=== PATIENT | female | born 1950 | race Caucasian/White ===

== ENCOUNTER 2016-12-16 20:45 | Emergency (ER) | payer MEDICARE, OTHER ==
[~2016-12-16] VITALS: Ht 158.8 cm; Wt 60.0 kg
[~2016-12-16 20:45] MED LIST: ALBUTEROL SULFATE; BLACK COHOSH; CALCIUM; CARTIA XT; FLUT1DIS8; MAGNESIUM; MELATONIN; MOMETASONE; NEX40C; PROGESTERONE; SELENIUM; VITAMIN B12; VITAMIN B6; VITAMIN D
[2016-12-16 20:47] VITALS: BP 171/99; PULSE 78; RESP 16; O2SAT 96
--- NOTE | 2016-12-16 20:59 | ED.REPORT ---
HPI-Allergic Reaction Date of Service Dec 16, 2016 ED Provider: Shane Long MD Pt is a 66 y/o female with a history of asthma, hypertension, GA, CHF, and pacemaker insertion who presents to ED c/o bright red and itching allergic reaction onset today. Pt was [place] for similar symptoms 2 [place] [facility] [place] given one dose of prednisone and Benadryl which mostly cleared up her symptoms, until they returned today. Two days ago, she tried new mushrooms, toothpaste, and eucalyptus essential oil, but denies having any of those today. Additional symptoms include tongue tingling. She denies lip swelling, tongue swelling, SOB, fever, or any other symptoms. Pt denies any new medications or insect bites. Nursing Notes Stated Complaint: POSS ALLERGIC REACTION TO MEDS Chief Complaint: Allergic Reaction Nursing Notes Reviewed: Yes ([employer], meds not reconciled) Allergies: Coded Allergies: levofloxacin (Verified Allergy, Severe, muscle pain, 12/16/16) Cephalosporins (Unverified Allergy, Unknown, HIVES, 07/21/10) Penicillins (Verified Allergy, Unknown, Hives, 02/08/09) Sulfa (Sulfonamide Antibiotics) (Unverified Allergy, Unknown, HIVES, ) cefuroxime axetil (Verified Allergy, Unknown, 10/31/13) doxycycline (Verified Allergy, Unknown, blind, 12/16/16) Scheduled Prednisone (PredniSONE) 20 Mg Tablet 60 MG PO DAILY Scheduled PRN Epinephrine (Epipen 2-Geovany) 0.3 Mg/0.3 Ml Auto.injct 0.3 MG IJ DIRECTED PRN PRN For Anaphyllaxis Miscellaneous Medications ([Albuterol Sulfate ]) ([Black Cohosh]) ([Calcium]) ([Magnesium]) ([Nasonex 0.05%]) ([Cartia Xt]) ([Melatonin ]) ([Progesterone]) ([Selenium Tr]) ([Vitamin B12]) ([Vitamin B6 ]) ([Vitamin D]) Esomeprazole-Expunged Drug, Do Not Renew! (Esomeprazole-Expunged Drug, Do Not Renew!) 40 Mg Capsule. Flutic/Salmet-Expunged Drug, Do Not Renew! (Advair 500/50-Expunged Drug, Do Not Renew!) 1 Disk W/Dev Disk.w.dev General Time Seen by MD: 20:58 Chief Complaint Allergic reaction Hx Obtained From: Patient, Spouse Arrived By: Walk-in Quality: Itching, Painful Severity: Current: Severe Severity: Maximum: Severe Recent Healthcare: No recent hospitalization, Recent doctor visit Similar Sx Previous: Yes Past Medical History Past Medical History GA Reports: Asthma, Congestive heart failure, Hypertension Past Surgical History Pacemaker insertion Smoking History Unknown if Ever Smoker Social History Other Social History: Good social support Ambulatory Status Independent Review of Systems Tongue tingling No lip swelling No tongue swelling Constitutional: Denies: Fever Respiratory: Denies: Shortness of breath Skin: Reports Itching, Reports Rash Complete sys rev & neg: except as marked. Physical Exam Initial Vital Signs Vital Signs (First) Date Time Temp Pulse Resp B/P Pulse Ox O2 Delivery O2 Flow Rate FiO2 12/16/16 20:47 37 78 16 171/99 96 Room Air Initial VS: Reviewed, Vital signs abnormal Head / Eyes: Atraumatic, Normocephalic Neck: Supple, Full range of motion Abdomen / GI: Soft, Non-tender Extremities: Vascular intact, Neuro intact, No swelling, No tenderness Neurologic: Alert, Oriented, Nonfocal Psychiatric: Mood/affect normal, Behavior normal, Normal thought content General/Constitutional: Awake, Alert Respiratory / Chest: Atraumatic, Breath sounds NL, Breath sounds = bilat, No respiratory distress No bronchial spasms Cardiovascular: Heart rate NL, Regular rhythm, Heart sounds NL Not hypotensive Skin: Warm, Dry No angioedema Severe generalized urticaria Re-Eval/Medical Decision Med Decision/Clinical Course This is a 66-year-old female who presents complaining of allergic reaction. Exact precipitant is unknown. Started several days ago she developed generalized urticaria and went to [facility] she received a single dose of prednisone and Benadryl symptoms improved. They then reoccurred today. The initial things that she was wondering about maybe contributed to symptoms when things started on Saturday, none of those exposures reoccurred, so she has no idea what is contributing to symptoms today. She developed severe, generalized urticaria. She reports a vague sense of shortness of breath, no lip or tongue swelling, no hypertension. He is in however she has severe urticaria, but she does not have audible bronchospasm, but her breathing is unlabored, she has had no GI symptoms, is not hypotensive, demonstrates no signs of anaphylaxis. The severity the urticaria she is offered a dose of epinephrine and accepted, and received a low-dose 0.2 mg that she did not want to get a large and/or standard dose. This worked adequately resolved urticaria. She received additional dose of prednisone, and I recommended continuing the course of prednisone given the recurrence. She will continue Benadryl at home when necessary. She also takes when necessary Zantac and otherwise she can continue this is a potentiate the Benadryl given its an H2 wally. I have gone ahead and written a prescription for an EpiPen, routine precautions reviewed. Patient's discharged in improved condition Source of Hx: Old records Re-Evaluation/Progress : Time of Eval: 21:37 Patient Status: Condition improved Re-Evaluation/Progress Note: Pt rechecked. Urticaria was 99% resolved with epi. Discussed plan for discharge. Patient understands and agrees with plan. F/U instructions and RTER warnings given. All questions addressed at this time Differential Diagnosis: Positive: Allergic reaction, Urticaria, Negative: Contact dermatitis, Drug reaction, Hemolytic uremic syndrome, Idiopathic thromb purpura, Richards-Trell syndrome, Viral syndrome Counseled Regarding: Diagnosis, Lab results, Need for follow-up, When/why to return to ED Discharge & Departure Primary Impression: Allergic reaction Encounter type: initial encounter Qualified Code: T78.40XA - Allergy, unspecified, initial encounter Additional Impression: Urticaria Disposition: Home Discharge Condition All VS Reviewed: Yes Condition: Stable Additional Instructions: 1. Unfortunately there is not a simple testing be done in the emergency department to identify the exact cause of allergic reaction and hives (urticaria ). 2. Take prednisone 60 mg once a day for the next 5 days. This should do a better job helping prevent recurrence of symptoms. 3. Continue continue Benadryl as long as needed for the itching or rash-but discontinue as soon as symptoms are improved. 4. Zantac should actually help the Benadryl work better, and is unlikely to have contributed to the symptoms. You can continue if you would like. 5. Follow-up with your regular provider. Return if new or worsening symptoms occur. Referrals: Dilma Jacob DO (PCP) Scribe Attestation Portions of this note were transcribed by Nathalia Fierro. I, Dr. Long, personally performed the history, physical exam and medical decision-making; I reviewed and confirmed the accuracy of the information in the transcribed note. copies to: Dilma Jacob Matthew F MD Dec 16, 2016 20:59 Nathalia Fierro Dec 16, 2016 21:09
[2016-12-16] MEDS ORDERED: predniSONE 20 mg Tablet PO ONE (21:10)
[2016-12-16] MEDS ORDERED: PRE20 PO (21:57)
[2016-12-16] MEDS ORDERED: EPIN0.3P2 IJ (21:57)
[2016-12-16 22:07] VITALS: BP 128/80; PULSE 70; RESP 16; O2SAT 95
== END 2016-12-16 22:05 | disposition home or self-care (01) ==
LOC: SED 20:45
DX: L50.0 Allergic urticaria (principal); I11.0 Hypertensive heart disease with heart failure; I50.9 Heart failure, unspecified; I25.2 Old myocardial infarction; J45.909 Unspecified asthma, uncomplicated; Z95.0 Presence of cardiac pacemaker; Z88.0 Allergy status to penicillin; Z88.1 Allergy status to other antibiotic agents; Z88.2 Allergy status to sulfonamides
CPT/HCPCS: 96372; 99283; J0171